=== PATIENT | female | born 1950 | race Caucasian/White ===

== ENCOUNTER 2022-08-07 21:43 | Emergency (ER) | payer OTHER ==
[~2022-08-07] VITALS: Ht 170.2 cm; Wt 75.7 kg
[2022-08-07 22:00] VITALS: BP_SYST 142
--- NOTE | 2022-08-07 22:24 | NUR ---
Patient to ER bed 7 to gown for evaluation. Side rails up. Report given to jeannie AGUILERA.
--- NOTE | 2022-08-07 22:25 | NUR ---
PT BIB FRIENDS FROM HOME, AMBULATED TO BED 7. PT A&Ox4, ABLE TO MAKE NEEDS KNOWN. PT C/O OF HEAD PAIN DUE TO FALLING. PT STATES SHE WAS CHASING HER DOG TRIPPED AND FEEL AND HIT HER HEAD. PT DENIES LOSING CONCIOUSNESS. PT DENIES TAKING PAIN MEDS. PT RATES PAIN 8/10. PT DESCRIBES PAIN THROBBING. PT C/O DIZZINESS, NAUSEA, AND HEADACHE. PT DENIES V/D. ABRASION NOTED ABOVE LEFT EYEBROW AND UNDERLEFT EYE
--- NOTE | 2022-08-07 23:14 | NUR ---
ER at bedside examining patient.
[2022-08-07] MEDS ORDERED: ACETAMINOPHEN 325 MG TABLET PO ONE (23:30)
[2022-08-07] MEDS ORDERED: HYDROcodone/ACETAMIN 5-325 MG TAB (NORCO/ VICODIN) PO ONE (23:30)
[2022-08-07] MEDS ORDERED: IBUPROFEN 600 MG TABLET PO ONE (23:30)
[2022-08-08] MEDS ORDERED: BACITRACIN 1 GM OINT TP ONE (00:42)
[2022-08-08] MEDS ORDERED: ONDA-8 TL (00:54)
[2022-08-08 01:17] VITALS: BP_SYST 140
--- NOTE | 2022-08-08 01:17 | NUR ---
Patient given written and verbal discharge instructions and verbalizes understanding. ER DR LU discussed with patient the results and treatment provided. Patient in stable condition. ID arm band removed. Rx of ZOFRAN given. Patient educated on pain management and to follow up with PMD. Pain Scale 2/10. Opportunity for questions provided and answered. Medication side effect fact sheet provided.
== END 2022-08-08 01:17 | disposition home or self-care (01) ==
LOC: SED 21:43
DX: S00.81XA Abrasion of other part of head, initial encounter (principal); Z79.899 Other long term (current) drug therapy; W54.1XXA Struck by dog, initial encounter; Y93.K1 Activity, walking an animal; Y92.89 Other specified places as the place of occurrence of the external cause; Y99.8 Other external cause status
CPT/HCPCS: 70450-TC; 72125-TC; 76376; 99284

== ENCOUNTER 2022-08-17 12:50 | Emergency (ER) | payer OTHER ==
[~2022-08-17] VITALS: Ht 170.2 cm; Wt 74.8 kg
[~2022-08-17 12:50] MED LIST: ONDA-8 TL
[2022-08-17 13:20] VITALS: BP_SYST 140
[2022-08-17] MEDS ORDERED: KETOROLAC TROMETHAMINE 60 MG/2 ML VIAL IM ONE (14:42)
[2022-08-17] MEDS ORDERED: NAPR-1172 PO ×2 (15:02→16:09)
[2022-08-17 16:13] VITALS: BP_SYST 136
== END 2022-08-17 16:13 | disposition home or self-care (01) ==
LOC: SED 12:50
DX: S46.911A Strain of unspecified muscle, fascia and tendon at shoulder and upper arm level, right arm, initial encounter (principal); Z79.899 Other long term (current) drug therapy; X58.XXXA Exposure to other specified factors, initial encounter; Y93.89 Activity, other specified; Y92.89 Other specified places as the place of occurrence of the external cause; Y99.8 Other external cause status
CPT/HCPCS: 99283; 73030; J1885